=== PATIENT | male | born 1955 | race African-American/Black ===

== ENCOUNTER 2018-06-14 20:00 | Inpatient (IN) | payer OTHER ==
[~2018-06-14] VITALS: Ht 175.3 cm; Wt 72.1 kg
[2018-06-14 20:06] VITALS: BP 106/62
[2018-06-14 20:12] VITALS: BP 106/62
--- NOTE | 2018-06-14 20:14 | NUR ---
EKG PERFORMED AT BEDSIDE. PT COVERED IN GOWN DURING PROCEDURE
[2018-06-14 20:40] LABS: BASOPHILS % (AUTO) 0.2 % (0.0-2.0); EOSINOPHILS # (AUTO) 0.2 K/uL (0-0.4); EOSINOPHILS % (AUTO) 1.8 % (0.0-4.0); HEMATOCRIT 25.8 % (36-52); HEMOGLOBIN 7.9 g/dL (12.0-18.0); LYMPHOCYTES # (AUTO) 1.7 K/uL (2.0-11.5); LYMPHOCYTES % (AUTO) 12.4 % (20.5-51.1); MEAN CORPUSCULAR HEMOGLOBIN 26 pg (27-31); MEAN CORPUSCULAR HGB CONC 31 g/dL (33-37); MEAN CORPUSCULAR VOLUME 85.4 fL (80-94); MONOCYTES # (AUTO) 0.4 K/uL (0.8-1.0); MONOCYTES % (AUTO) 3.2 % (1.7-9.3); NEUTROPHILS % (AUTO) 82.4 % (42.2-75.2); PLATELET COUNT (AUTO) 306 K/uL (140-450); RED BLOOD CELL COUNT(AUTO) 3.02 MIL/uL (4.20-6.10); WHITE BLOOD COUNT (AUTO) 13.3 K/uL (4.8-10.8)
[2018-06-14] MEDS ORDERED: SLIDE SUBQ (20:48)
[2018-06-14 20:56] LABS: ALBUMIN 2.1 g/dL (3.4-5.0); CARBON DIOXIDE 27.9 mmol/L (21-32); CREATININE 1.4 mg/dL (0.7-1.3); POTASSIUM 4.9 mmol/L (3.5-5.1); TOTAL BILIRUBIN 0.1 mg/dL (0.0-1.0)
[2018-06-14] MEDS ORDERED: CRAN450C PO (21:01)
[2018-06-14] MEDS ORDERED: FAMO-90 PO (21:01)
[2018-06-14] MEDS ORDERED: LISI-420 PO (21:01)
[2018-06-14] MEDS ORDERED: LACT10PA2 PO (21:01)
[2018-06-14] MEDS ORDERED: ACET-2619 PO (21:01)
[2018-06-14] MEDS ORDERED: METO50TA21 PO (21:01)
[2018-06-14] MEDS ORDERED: HEPA500056 (21:01)
[2018-06-14] MEDS ORDERED: ASCO500T45 PO (21:01)
[2018-06-14] MEDS ORDERED: CHLO1SOL3 (21:01)
[2018-06-14] MEDS ORDERED: LEVEMIR SUBQ (21:01)
[2018-06-14] MEDS ORDERED: HYDR100T79 PO (21:01)
[2018-06-14] MEDS ORDERED: LACT10SO1 PO (21:01)
[2018-06-14] MEDS ORDERED: ROB1 PO (21:01)
[2018-06-14] MEDS ORDERED: ASPI-1205 PO (21:01)
[2018-06-14] MEDS ORDERED: DOCU-299 PO (21:01)
[2018-06-14] MEDS ORDERED: AMLO10TA PO (21:01)
[2018-06-14] MEDS ORDERED: FERR75LI22 (21:01)
[2018-06-14] MEDS ORDERED: LEVE1000 PO (21:01)
[2018-06-14] MEDS ORDERED: MODA100T13 PO (21:05)
[2018-06-14] MEDS ORDERED: PIPERACILLIN/TAZOBACTAM 3.375 GM in DEXTROSE 5% 50 ML IV ONE (21:10)
[2018-06-14] MEDS ORDERED: NACL 0.9% 1,000 ML IV ONE ×2 (21:10→23:10)
[2018-06-14] MEDS ORDERED: VANCOMYCIN 1,000 MG in DEXTROSE 5% 250 ML IV ONE (21:10)
--- NOTE | 2018-06-14 21:10 | NUR ---
IV START: L AC 18G, FLUSHED WELL W/O RESISTANCE, NO REDNESS OR SWELLING NOTED, TRANSPARENT DRESSING APPLIED. PT TOLERATED WELL.
--- NOTE | 2018-06-14 21:15 | NUR ---
PT BIBA C/O ABNORMAL LABS. [facility] [place] [facility] REQUESTING PT BE SEEN BY AT [facility] FOR HEMOGLOBIN OF 6.7. PT PRESENTS TO THE ED BAG TO [facility]. VENT, W/ RANKIN CATH, G-TUBE, AND TRACH. --PT OPENS EYES TO VOICE AND NAME. NEG HAND ONION TIER, CONTRACTURED POSITION. APHASIA. --G-TUBE PRESENT TO MEDIAL RIGHT ABD, NO REDNESS, SWELLING OR DISCHARGE NOTED TO SIGHT AT THIS TIME. --ABD ROUND AND FIRM, BOWEL SOUNDS ACTIVE X4 QUAD. --AUDIBLE RHONCHI. CHEST RISE AND FALL EQUAL AND UNLABORED BL. --SACRAL DECUB NOTED, PMH: QUADRIPLEGIC, DM, RESP FAILURE, VENT DEPENDENT, HTN, CVA RX: IN CHART VENT SETTINGS IN CHART
[2018-06-14] MEDS ORDERED: PIPERACILLIN/TAZOBACTAM 3.375 GM VIAL IV ONE (21:36)
[2018-06-14 21:49] LABS: APPEARANCE,URINE SL CLOUDY (CLEAR); BILIRUBIN,URINE NEGATIVE (NEGATIVE); BLOOD, URINE 3+ (NEGATIVE); COLOR,URINE YELLOW (YELLOW); LEUKOCYTE ESTERASE ,URINE 1+ (NEGATIVE); NITRITE, URINE NEGATIVE (NEGATIVE); PH,URINE 7.5 (5.0-9.0); UGLUCOSE 1+ (NEGATIVE)
[2018-06-14 21:55] LABS: RBC,URINE TOO NUMEROUS TO COUN /HPF (0-5); WBC,URINE 16-25 (MOD) /HPF (0-5)
[2018-06-14 21:56] LABS: YEAST,URINE Moderate /HPF (None Seen)
--- NOTE | 2018-06-14 22:17 | NUR ---
Patient noted to have existing wounds upon arrival to ER. Photos taken of wound and placed in chart; un-open sacrul wound, slight discoloration of pink and white, non blanching. Wound covered with dressing. Physician informed.
--- NOTE | 2018-06-14 22:30 | NUR ---
COMFOR MEASURES PROVIDED. PT ACTING APPROPRIAT TO BASELINE. VSS. SAFETY PRECAUTIONS IN PLACE.
[2018-06-14] MEDS ORDERED: VANCOMYCIN 1,000 MG VIAL ONE (22:45)
[2018-06-14] MEDS ORDERED: KCL 20 MEQ/WATER INJ PREMIX 200 ML IV PRN (23:00)
[2018-06-14] MEDS ORDERED: ONDANSETRON 4 MG/2 ML VIAL IVP PRN (23:00)
[2018-06-14] MEDS ORDERED: MORPHINE SULFATE 2 MG/ML SYR IVP PRN (23:00)
[2018-06-14] MEDS ORDERED: MAG SULF 2000 MG/WATER PREMIX 50 ML IV PRN (23:00)
[2018-06-14] MEDS ORDERED: LORazepam 2 MG/ML VIAL IVP PRN (23:00)
[2018-06-14] MEDS ORDERED: MORPHINE SULFATE 4 MG/ML SYR IVP PRN (23:00)
[2018-06-14 23:07] VITALS: BP 99/56
[2018-06-14] MEDS ORDERED: DEXTROSE 50% 50 ML SYR IVP PRN (23:25)
--- NOTE | 2018-06-15 00:40 | NUR ---
RECEIVED PT FROM ER VIA [employer]. PT ON TRACH TO VENT BEDBOUND, APHASIC, PT ASLEEP AT THIS TIME SEEMS LETHARGIC (UNABLE TO ASSESS MENTAL STATUS AT THIS TIME). PT HAS SECRETIONS FROM MOUTH, SUNCTIONED BY RT. W/ IV ON THE LEFT AC G 18, PATENT AND INTACT .PT HAS A LOT OF SECRETIONS IN THE LUNGS, SUNCTIONED BY RT AT BEDSIDE. PLACED IN LOW BED. FALL RISK, AND CALL LIGHT W/IN REACH
--- NOTE | 2018-06-15 01:25 | NUR ---
PT TURNED AND CLEANED, W/ 1 LOOSE BM NOTED, YELLOW IN COLOR.
[2018-06-15] MEDS: DEXT 5% / NACL 0.45% 1,000 ML IV SCH ×4 (02:12→23:10)
--- NOTE | 2018-06-15 02:12 | NUR ---
PT STARTED W/ IVF FLUID ORDERED, GT IN PLACE ON LEFT SIDE OF ABDOMEN, INTACT. NO TUBE FEEDING YET ORDERED.
[2018-06-15 04:00] VITALS: BP 134/80
--- NOTE | 2018-06-15 05:00 | NUR ---
PT TURNED AND CLEANED, NO BM. DRAINED F/C W/ YELLOW STRAW COLORED URINE = 600 ML
--- NOTE | 2018-06-15 06:19 | NUR ---
PATIENT HAS BEEN SCREENED AND CATEGORIZED HIGH NUTRITION RISK. PATIENT WILL BE SEEN WITHIN 1-2 DAYS OF ADMISSION. 06/16/18-06/17/18 MACIE SAMANO MS, RDN
--- NOTE | 2018-06-15 06:42 | NUR ---
RECEIVED PT ON CARESCAPE ON DOCUMENTED SETTINGS, ALARMS ARE ON AND AUDIBLE, PTS TRAC IS SECURE PORTEX 8 , PT IN HF QUIET, BS CLEAR CONT. POX IN PLACE, BMV HOB, VENT PLUGGED INTO RED OUTLET
[2018-06-15] MEDS: BLOOD GLUCOSE MONITORING 1 DEV DEV FS SCH ×4 (06:43→19:59)
[2018-06-15] MEDS: INSULIN LISPRO SLIDING SCALE 100 UNITS/ML VIAL SUBQ PRN ×4 (06:44→20:03)
--- NOTE | 2018-06-15 07:20 | NUR ---
ENDORSED TO AM SHIFT FOR CONTINUITY OF CARE. PT TRACH TO VENT, AWAKE AT THIS TIME, NO RESPIRATORY DISTRESS NOTED.
--- NOTE | 2018-06-15 07:21 | NUR ---
REPORT RECEIVED FROM TRAFFIC CHIEF NURSE AT BEDSIDE FOR CONTINUITY OF CARE. PATIENT AWAKE WITH EYES OPEN, TRACH TO VENT, RESPIRATIONS EVEN AND UNLABORED ON VENTILATOR. FLACC-0, IV SITE PATENT, INTACT, AND ASYMPTOMATIC. UPDATED BOARD. PATIENT HAS RANKIN CATHETER DRAINING TO GRAVITY, DRAINING YELLOW URINE. PATIENT HAS GTUBE, GTUBE AUSCULTATED FOR PLACEMENT, 0ML OF RESIDUAL NOTED. GTUBE CURRENTLY CLAMPED. AWAITING ORDERS FOR FEEDING. SAFETY AND SEIZURE PRECAUTIONS IN PLACE, BED IN LOWEST SETTING WITH ALARM ON, CALL LIGHT WITHIN REACH, WILL CONTINUE TO MONITOR PATIENT.
[2018-06-15 08:00] VITALS: BP 119/69
[2018-06-15 08:39] LABS: BASOPHILS # (AUTO) 0.1 K/uL (0.00-0.22); BASOPHILS % (AUTO) 0.5 % (0.0-2.0); EOSINOPHILS # (AUTO) 0.2 K/uL (0-0.4); EOSINOPHILS % (AUTO) 1.9 % (0.0-4.0); HEMATOCRIT 24.3 % (36-52); HEMOGLOBIN 7.7 g/dL (12.0-18.0); LYMPHOCYTES # (AUTO) 1.8 K/uL (2.0-11.5); LYMPHOCYTES % (AUTO) 18.5 % (20.5-51.1); MEAN CORPUSCULAR HEMOGLOBIN 27 pg (27-31); MEAN CORPUSCULAR HGB CONC 32 g/dL (33-37); MEAN CORPUSCULAR VOLUME 85.1 fL (80-94); MONOCYTES # (AUTO) 0.4 K/uL (0.8-1.0); MONOCYTES % (AUTO) 4.4 % (1.7-9.3); NEUTROPHILS # (AUTO) 7.4 K/uL (1.8-7.7); NEUTROPHILS % (AUTO) 74.7 % (42.2-75.2); PLATELET COUNT (AUTO) 259 K/uL (140-450); RED BLOOD CELL COUNT(AUTO) 2.85 MIL/uL (4.20-6.10); RED CELL DISTRIBUTION WIDTH 17.2 % (11.6-13.7)
[2018-06-15 08:52] LABS: ALBUMIN 1.9 g/dL (3.4-5.0); ANION GAP 13.2 (8-16); CARBON DIOXIDE 26.1 mmol/L (21-32); CREATININE 1.2 mg/dL (0.7-1.3); MAGNESIUM 2.8 mg/dL (1.8-2.4); POTASSIUM 4.3 mmol/L (3.5-5.1); TOTAL BILIRUBIN 0.1 mg/dL (0.0-1.0)
--- NOTE | 2018-06-15 09:15 | NUR ---
PATIENT'S CANDI CALLED, UPDATED HER ON PATIENT'S STATUS. SHE VERBALIZED UNDERSTANDING AND STATED SHE WILL BE IN LATER TO SEE HIM. RN VERBALIZED UNDERSTANDING. PAGED DR. TALBOT ABOUT PATIENT'S LAB RESULTS, WILL WAIT FOR HIS CALL BACK. PATIENT RESTING IN BED, SAFETY PRECAUTIONS IN PLACE, CALL LIGHT WITHIN REACH, WILL CONTINUE TO MONITOR PATIENT.
--- NOTE | 2018-06-15 09:35 | NUR ---
CALLED [facility] TO INQUIRE ABOUT PATIENT'S TUBE FEEDING AND PNA AND FLU VACCINE STATUS. SPOKE TO KRISTOPHER, NURSING ROUGE MIXER. PATIENT'S REGULAR TUBE FEEDING IS GLUCERNA 1.5 AT 70 CC/HR. PNA AND FLU VACCINE GIVEN IN 05/02/18. RN VERBALIZED UNDERSTANDING.
--- NOTE | 2018-06-15 09:39 | NUR ---
CALLED DR. TALBOT TO UPDATED HIM WITH PATIENT'S SODIUM LEVEL OF 156. HE STATED TO CONTINUE SAME FLUID AND RATE. RN VERBALIZED UNDERSTANDING. WILL CONTINUE TO MONITOR PATIENT.
[2018-06-15] MEDS: levETIRAcetam 100 MG/ML ORASYR GT SCH ×2 (11:27→20:31)
--- NOTE | 2018-06-15 11:30 | NUR ---
PATIENT MOVED TO WOUND BED. PATIENT'S DRESSING CHANGED, MINIMAL DRAINAGE NOTED. PATIENT REPOSITIONED FOR COMFORT AND TO OFFLOAD PRESSURE AREAS. PATIENT TOLERATED PROCEDURE. PATIENT NOW RESTING IN BED. PATIENT SUCTIONED WITH THICK SECRETIONS. SAFETY AND SEIZURE PRECAUTIONS IN PLACE, CALL LIGHT WITHIN REACH, WILL CONTINUE TO MONITOR PATIENT.
[2018-06-15 12:00] VITALS: BP 117/65
[2018-06-15] MEDS: ALBUTEROL 0.083% 2.5 MG/3 ML NEBU INH PRN (13:31)
--- NOTE | 2018-06-15 14:10 | NUR ---
PAGED DR. POTTER ABOUT PATIENT'S TUBE FEEDING AND MEDICATIONS. WILL WAIT FOR HIS CALL BACK.
[2018-06-15] MEDS ORDERED: ACETAMINOPHEN 325 MG TAB GT PRN (15:30)
--- NOTE | 2018-06-15 15:50 | NUR ---
CALLED DR POTTER ABOUT PATIENT'S TUBE FEEDING AND MEDICATIONS. NEW ORDERS IN. NOTED AND WILL BE FOLLOWED.
[2018-06-15 16:00] VITALS: BP 128/82
[2018-06-15] MEDS: LACTULOSE 20 GM/30 ML UDC GT SCH ×2 (16:26→20:30)
[2018-06-15] MEDS: GLYCOPYRROLATE 1 MG TAB GT SCH (16:26)
--- NOTE | 2018-06-15 17:09 | NUR ---
BLOOD SUGAR 277, COVERAGE GIVEN. PATIENT TOLERATED IT. SAFETY AND SEIZURE PRECAUTIONS IN PLACE, CALL LIGHT WITHIN REACH, WILL CONTINUE TO MONITOR PATIENT.
--- NOTE | 2018-06-15 17:48 | NUR ---
DR. TALBOT HERE TO SEE THE PATIENT. UPDATED HIM ABOUT PATIENT'S STATUS. NO NEW ORDERS AT TIME. GTUBE AUSCULTATED FOR PLACEMENT, 0 ML OF RESIDUAL NOTED, TUBE FEEDING STARTED AT 1730 WITH RATE ORDERED. PATIENT TOLERATING IT. PATIENT SUCTIONED WITH THICK SECRETIONS. SAFETY AND SEIZURE PRECAUTIONS IN PLACE, CALL LIGHT WITHIN REACH, WILL CONTINUE TO MONITOR PATIENT.
--- NOTE | 2018-06-15 19:05 | NUR ---
REPORT GIVEN TO RADIOACTIVITY TECHNICIAN NURSE AT BEDSIDE FOR CONTINUITY OF CARE. PATIENT IN STABLE CONDITION.
--- NOTE | 2018-06-15 19:06 | NUR ---
REPORT RECEIVED FROM AM SHIFT NURSE AT BEDSIDE PATIENT AWAKE WITH EYES OPEN, TRACH TO VENT, RESPIRATIONS EVEN AND UNLABORED ON VENTILATOR. 32 FIO2; VF 500; RATE 16; FLOW 40; PEEP 5. FLACC-0, IV SITE PATENT, INTACT, AND ASYMPTOMATIC. W/ GTUBE FEEDING GLUCERNA 1.2 ML, GTUBE AUSCULTATED FOR PLACEMENT, 10 ML OF RESIDUAL NOTED. PATIENT HAS RANKIN CATHETER DRAINING TO GRAVITY, DRAINING YELLOW URINE. SAFETY AND SEIZURE PRECAUTIONS IN PLACE, BED IN LOWEST SETTING WITH ALARM ON, CALL LIGHT WITHIN REACH, WILL CONTINUE TO MONITOR PATIENT.
--- NOTE | 2018-06-15 19:20 | NUR ---
TUBE FEEDING REMAINED TO BE AT 40 ML/HR ENDORSED BY PREVIOUS SHIFT,FIORELLARN ACCDG TO DR. TALBOT UNTIL HE COMES BACK TMRW.
[2018-06-15 20:00] VITALS: BP 135/84
--- NOTE | 2018-06-15 20:00 | NUR ---
PT'S TURNED Q 2 TO HIS SIDE.
[2018-06-15] MEDS: INSULIN LANTUS 100 UNITS/ML 10 ML VIAL SUBQ SCH (20:09)
--- NOTE | 2018-06-15 20:22 | NUR ---
CALLED PHARMACY, [facility], [facility], 10.0 PT LEVEL LOW. PHARMACY SAID TO GO AHEAD W/ THE ADMINISTRATION OF HEPARIN SQ
[2018-06-15] MEDS: METOPROLOL 25 MG TAB GT SCH (20:31)
[2018-06-15] MEDS: FAMOTIDINE 20 MG TAB GT SCH (20:32)
--- NOTE | 2018-06-15 21:00 | NUR ---
BLOOD SUGAR 270, HUMALOG COVERAGE GIVEN.W/ LANTUS COVERAGE ALSO. PATIENT TOLERATED IT
[2018-06-16] VITALS: BP 121/67
--- NOTE | 2018-06-16 00:32 | NUR ---
PT HAD A LOOSE BM, YELLOW IN COLOR, MAXIMUM IN AMOUNT. WAS GIVEN CEPHULAC EARLIER TOTAL OF 45 ML.
[2018-06-16 04:00] VITALS: BP 141/80
[2018-06-16] MEDS: INSULIN LISPRO SLIDING SCALE 100 UNITS/ML VIAL SUBQ PRN ×5 (04:54→20:15)
[2018-06-16] MEDS: BLOOD GLUCOSE MONITORING 1 DEV DEV FS SCH ×5 (06:01→20:16)
--- NOTE | 2018-06-16 06:31 | NUR ---
rec'd pt on carescape vent settings ac16 vt 500 peep 5 fio2 32% alarms on and audible and ambu bat at side of vent and vent is plugged into red outlet, no hhn needed at this time, b\s are clear bilaterally sxn pt small amt of thin yellow secretions pt is trach with portex 8 and skin integrity is intact, pt is sleeping with no signs of distress noted at this time
[2018-06-16 07:06] LABS: ALBUMIN 1.9 g/dL (3.4-5.0); CARBON DIOXIDE 21.9 mmol/L (21-32); MAGNESIUM 2.4 mg/dL (1.8-2.4); POTASSIUM 3.9 mmol/L (3.5-5.1)
--- NOTE | 2018-06-16 07:15 | NUR ---
ENDORSED TO NEXT SHIFT FOR CONTINUITY OF CARE. PT IN STABLE CONDITION AT THIS TIME.
--- NOTE | 2018-06-16 07:16 | NUR ---
Received bedside report from pm nurse Lilo. Pt asleep, FLACC 0, respirations even & nonlabored. Trach in place with A/C vent. LAC IV intact with ongoing D5 1/2 NS @ 100ml/hr. Platt cath intact & draining clear light kayden urine. GT in place with ongoing Glucerna 1.2 @ 40ml/hr; HOB up at 30deg. Call light within reach.
[2018-06-16 08:00] VITALS: BP 141/70
[2018-06-16] MEDS: LACTULOSE 20 GM/30 ML UDC GT SCH ×4 (09:00→20:02)
--- NOTE | 2018-06-16 09:00 | NUR ---
Lactulose held at this time d/t previous shift report of multiple loose stools 2/2 lactulose. Pt asymptomatic at this time, abd soft, bowel sound active on all quadrants.
[2018-06-16] MEDS: ASCORBIC ACID 500 MG TAB GT SCH (09:42)
[2018-06-16] MEDS: METOPROLOL 25 MG TAB GT SCH ×2 (09:42→20:02)
[2018-06-16] MEDS: FAMOTIDINE 20 MG TAB GT SCH ×2 (09:42→20:02)
[2018-06-16] MEDS: ASPIRIN 325 MG TAB GT SCH (09:42)
[2018-06-16] MEDS: FERROUS SULFATE 300 MG/5 ML UDC GT SCH (09:49)
[2018-06-16] MEDS: levETIRAcetam 100 MG/ML ORASYR GT SCH ×2 (09:49→20:03)
[2018-06-16] MEDS: DOCUSATE 100 MG/10 ML UDC PO SCH (09:49)
[2018-06-16] MEDS: GLYCOPYRROLATE 1 MG TAB GT SCH ×3 (09:50→17:03)
[2018-06-16] MEDS: LISINOPRIL 20 MG TAB GT SCH (09:50)
[2018-06-16 10:07] LABS: HEMATOCRIT 25.9 % (36-52); MEAN CORPUSCULAR VOLUME 86.4 fL (80-94); WHITE BLOOD COUNT (AUTO) 15.3 K/uL (4.8-10.8)
[2018-06-16 10:08] LABS: MEAN CORPUSCULAR HEMOGLOBIN 27 pg (27-31); MEAN CORPUSCULAR HGB CONC 31 g/dL (33-37); PLATELET COUNT (AUTO) 244 K/uL (140-450); RED CELL DISTRIBUTION WIDTH 16.8 % (11.6-13.7)
[2018-06-16 10:09] LABS: BASOPHILS % (MANUAL) 0 % (0-2); EOSINOPHILS % (MANUAL) 1 % (0-4); LYMPHOCYTES % (MANUAL) 23 % (20-46); MONOCYTES % (MANUAL) 5 % (5-12)
--- NOTE | 2018-06-16 11:30 | NUR ---
pt sleeping with no signs of distress noted at this time no hhn given Addendum: 06/16/18 at 1157 by Nel Liu RT entered wrong
--- NOTE | 2018-06-16 11:46 | NUR ---
WOUND CARE EVALUATION NOTE: REASON FOR EVALUATION: SACRALCOCCYX WOUND SKIN ASSESSMENT DONE WITH PRIMARY RN ON THIS 62 Y/O MALE PT ADMITTED FROM [facility] [place] TO [facility] WITH INITIAL DX OF ANEMIA AND DEHYDRATION. PAST MEDICAL HX INCLUDES HTN, DM AND CVA WITH QUADRIPLEGIA. ALL ABOVE INFORMATION OBTAINED FROM ADMISSION H&P. PT. IS TRACH TO VENT AND PEG TUBE IN PLACE. SKIN IS WARM AND DRY, BLE NO HAIR GROWTH, NO EDEMA. BILATERAL DORSAL PEDAL PULSES PRESENT AND NORMAL. PLAN OF CARE DISCUSSED WITH PRIMARY RN AND PT. INTEGUMENTARY: -TRACH SITE ARELY-STOMA SKIN INTACT -GT SITE ARELY-STOMA SKIN INTACT -PRESSURE INJURY STAGE 2 TO SACROCOCCYX 2.5X1X0.2CM BUTTERFLY SHAPE, WOUND BED IS PALE PINK, MOIST, NO ODOR, PASTOR-WOUND SKIN INTACT, SURROUNDING REDNESS INDICATED FURTHER DAMAGE. -XEROSIS BILATERAL FEET WITH FUNGAL NAILS X 10 TOES RECOMMENDATIONS: -KEEP SKIN DRY AND CLEAN AT ALL TIMES, PLEASE CHECK Q2H AND PRN FOR DRYNESS -APPLY HYDRAGUARD TO BLE/ FEET BIDWC AND LEAVE IT OPEN TO AIR -APPLY Z-GUARD AND FORM DRESSING TO SACROCOCCY QD AND PRN IF SOILING -APPLY HEEL PROTECTORS TO RIGHT /LEFT HEELS AT ALL TIMES -OFFLOAD BILATERAL HEELS BY PLACING PILLOWS UNDER CALVES UNLESS OTHERWISE CONTRAINDICATED -PRESSURE REDISTRIBUTION SURFACE THERAPY -TURN AND REPOSITION Q2H, OFFLOAD SACRALCOCCYX BY TURNING RIGHT AND LEFT -CONTINUE TO FOLLOW RD RECOMMENDATIONS ALL ABOVE RECOMMENDATIONS DISCUSSED WITH PRIMARY RN WILL FOLLOW UP PT Q7-10 DAYS. PLEASE CONTACT WOUND CARE NURSE FOR ANY QUESTION AND CHANGE OF WOUND CONDITION.
[2018-06-16 12:00] VITALS: BP 107/68
[2018-06-16] MEDS: Z-GUARD PASTE TP SCH (12:50)
[2018-06-16] MEDS: HYDRAGUARD CREAM TP SCH (12:51)
--- NOTE | 2018-06-16 14:45 | NUR ---
Received dietary recommendations to change tube feed to Vital @ 50ml/hr, & give Prosource bid. Will notify Dr Dunn for order.
--- NOTE | 2018-06-16 14:49 | NUR ---
06/16/18 RD INITIAL ASSESSMENT COMPLETED PLEASE REFER TO NUTRITION ASSESSMENT UNDER CARE ACTIVITY FOR ESTIMATED NUTRITIONAL NEEDS. 1. RECOMMEND VITAL AT 50 ML/HR -THIS WILL PROVIDE A VOLUME OF 1200 ML, 1440 KCAL ENERGY, AND 90 GM PROTEIN. IT MEETS 94% OF PT�S ENERGY NEED AND 81% OF PT�S PROTEIN NEEDS. 2. RECOMMEND PROSOURCE BID 3. RECOMMEND FWF [address] TO FOLLOW-UP 2-3 DAYS, HIGH RISK HEBER VIZCARRA RD
[2018-06-16] MEDS: DEXT 5% / NACL 0.45% 1,000 ML IV SCH (14:58)
--- NOTE | 2018-06-16 15:15 | NUR ---
Dr. Mona buchanan for preliminary blood cx result with gram positive cocci. Awaiting physician call back.
--- NOTE | 2018-06-16 15:30 | NUR ---
Dr. Dunn paged again re: blood cx result.
--- NOTE | 2018-06-16 15:45 | NUR ---
Dr. Dunn paged again re: blood cx result.
[2018-06-16 16:00] VITALS: BP 115/69
[2018-06-16] MEDS ORDERED: VANCOMYCIN PER PHARMACY MC PRN (16:10)
--- NOTE | 2018-06-16 16:10 | NUR ---
Received call back from Dr Dunn. Physician notified of blood cx result, & also notified of dietary recommendations. New orders received, noted & carried out.
[2018-06-16] MEDS: NACL 0.45% 1,000 ML IV SCH (16:23)
[2018-06-16] MEDS: VANCOMYCIN 750 MG in NACL 0.9% 250 ML IV SCH (17:43)
--- NOTE | 2018-06-16 19:16 | NUR ---
Bedside report given to pm nurse Abelardo.
--- NOTE | 2018-06-16 19:17 | NUR ---
RECEIVED ON BED WITH EYES CLOSED, OPEN EYES TO TOUCH, APHASIC, VITAL SIGNS STABLE, ON TRACH TO VENT WITH FF SETTINGS:FI02-32%, TV-500, PEEP-5, RATE-16, FLOW RATE-40L/M, SAT-100%, IVF INFUSING WELL, G-TUBE FEEDING INFUSING WELL, HOB ELEVATED AT ALL TIMES, RANKIN CATH TO GRAVITY WITH STRAW COLORED URINE, PT BEDBOUND WITH HX OF QUAD, WILL REPOSITION Q2H AND OFFLOAD PRESSURE AREAS, SERGIO HEEL PROTECTOR IN PLACE, SAFETY MEASURES IN PLACE.
[2018-06-16 20:00] VITALS: BP 115/72
[2018-06-16] MEDS: INSULIN LANTUS 100 UNITS/ML 10 ML VIAL SUBQ SCH (20:13)
--- NOTE | 2018-06-16 20:30 | NUR ---
BLOOD SUGAR CHECKED WITH 168 RESULT. COVERAGE GIVEN, 10ML G-TUBE RESIDUAL NOTED, DUE MEDS GIVEN THROUGH G-TUBE, NEW G-TUBE FEEDING WITH VITAL AF STARTED AT 50ML/H WITH H2O FLUSH OF 250ML Q6H ORDERED, ORAL CARE DONE USING VAP KIT, ALL NEEDS ANTICIPATED.
--- NOTE | 2018-06-16 22:20 | NUR ---
VENT ALARM WITH PEAK HIGH ALERT, PT SUCTIONED TRACHEALLY AND ORALLY WITH MODERATE AMOUNT OF CREAMY SECRETION NOTED, SAT-99%, ALARM RESOLVED, MONITORED CLOSELY.
[2018-06-17] VITALS: BP 97/59
--- NOTE | 2018-06-17 | NUR ---
PT SLEEPING, EASILY AROUSABLE, VITAL SIGNS STABLE, FLACC-0, SUCTION SECRETION PRN, 30ML G-TUBE RESIDUAL NOTED, MAINTAIN HOB AT 30 DEGREE, IVF INFUSING WELL, CONTINUE TO REPOSITION Q2H AND OFFLOAD PRESSURE AREAS, MONITORED CLOSELY.
[2018-06-17] MEDS: HYDRAGUARD CREAM TP SCH ×2 (00:27→13:00)
[2018-06-17] MEDS: NACL 0.45% 1,000 ML IV SCH ×3 (02:10→12:10)
[2018-06-17 04:00] VITALS: BP 127/86
--- NOTE | 2018-06-17 04:00 | NUR ---
PT SLEEPING, VITAL SIGNS STABLE, FLACC-0, NO SIGNS OF DISTRESS, MONITORED CLOSELY.
[2018-06-17] MEDS: VANCOMYCIN 750 MG in NACL 0.9% 250 ML IV SCH ×2 (05:33→17:54)
--- NOTE | 2018-06-17 05:35 | NUR ---
PT HAD LARGE LOOSE BROWN STOOL X2 THE WHOLE SHIFT, DRESSING TO SACRAL WOUND CHANGED, ORAL CARE DONE, 10ML G-TUBE RESIDUAL NOTED, BLOOD SUGAR CHECKED WITH 145 RESULT, MONITORED CLOSELY.
[2018-06-17] MEDS: BLOOD GLUCOSE MONITORING 1 DEV DEV FS SCH ×4 (06:34→20:47)
--- NOTE | 2018-06-17 06:43 | NUR ---
RECEIVED PT ON CARESCAPE ON DOCUMENTED SETTINGS, ALARMS ARE ON AND AUDIBLE, PT TRACH PORTEX 8 IS SECURE, PT IN HF ASLEEP HHN GIVEN WITH 3 MG DUONEB BNV HOB, CONT. POX IN PLACE, VENT PLUGGED INTO RED OUTLET
[2018-06-17 06:51] LABS: BASOPHILS % (AUTO) 0.4 % (0.0-2.0); EOSINOPHILS # (AUTO) 0.2 K/uL (0-0.4); EOSINOPHILS % (AUTO) 2.3 % (0.0-4.0); HEMATOCRIT 22.5 % (36-52); HEMOGLOBIN 7.1 g/dL (12.0-18.0); LYMPHOCYTES # (AUTO) 1.4 K/uL (2.0-11.5); LYMPHOCYTES % (AUTO) 16.6 % (20.5-51.1); MEAN CORPUSCULAR HEMOGLOBIN 27 pg (27-31); MEAN CORPUSCULAR HGB CONC 32 g/dL (33-37); MEAN CORPUSCULAR VOLUME 84.4 fL (80-94); MONOCYTES # (AUTO) 0.4 K/uL (0.8-1.0); NEUTROPHILS # (AUTO) 6.4 K/uL (1.8-7.7); NEUTROPHILS % (AUTO) 75.7 % (42.2-75.2); PLATELET COUNT (AUTO) 230 K/uL (140-450); RED BLOOD CELL COUNT(AUTO) 2.66 MIL/uL (4.20-6.10); RED CELL DISTRIBUTION WIDTH 16.6 % (11.6-13.7); WHITE BLOOD COUNT (AUTO) 8.4 K/uL (4.8-10.8)
--- NOTE | 2018-06-17 07:09 | NUR ---
PT SLEEPING, NO SIGNS OF DISTRESS, BEDSIDE REPORT GIVEN TO RN ISAURA FOR CONTINUITY OF CARE.
--- NOTE | 2018-06-17 07:10 | NUR ---
Bedside report received from pm nurse Abelardo. Pt asleep, respirations even & nonlabored. Trach to vent in place. GT intact with ongoing feeding of Vital AF 1.2 @ 50 ml/hr. Left AC IV intact with ongoing 1/2 NS @ 100ml/hr. Platt cath in place & draining clear yellow urine. HOB up at 30degrees. Call light within reach.
[2018-06-17 07:18] LABS: ANION GAP 14.1 (8-16); CARBON DIOXIDE 23.4 mmol/L (21-32); CREATININE 0.9 mg/dL (0.7-1.3); POTASSIUM 3.5 mmol/L (3.5-5.1)
[2018-06-17 07:36] LABS: MAGNESIUM 2.2 mg/dL (1.8-2.4); PHOSPHORUS 3.1 mg/dL (2.5-4.9)
[2018-06-17 08:00] VITALS: BP 149/80
[2018-06-17] MEDS: DOCUSATE 100 MG/10 ML UDC PO SCH (08:59)
[2018-06-17] MEDS: FERROUS SULFATE 300 MG/5 ML UDC GT SCH (08:59)
[2018-06-17] MEDS: METOPROLOL 25 MG TAB GT SCH ×2 (09:00→20:48)
[2018-06-17] MEDS: GLYCOPYRROLATE 1 MG TAB GT SCH ×3 (09:00→17:13)
[2018-06-17] MEDS: FAMOTIDINE 20 MG TAB GT SCH ×2 (09:00→20:48)
[2018-06-17] MEDS: LACTULOSE 20 GM/30 ML UDC GT SCH ×4 (09:00→20:48)
[2018-06-17] MEDS: ASCORBIC ACID 500 MG TAB GT SCH (09:00)
[2018-06-17] MEDS: levETIRAcetam 100 MG/ML ORASYR GT SCH ×2 (09:00→20:48)
[2018-06-17] MEDS: LISINOPRIL 20 MG TAB GT SCH (09:02)
[2018-06-17] MEDS: ASPIRIN 325 MG TAB GT SCH (09:04)
[2018-06-17 12:00] VITALS: BP 123/87
[2018-06-17] MEDS: Z-GUARD PASTE TP SCH (13:00)
--- NOTE | 2018-06-17 13:00 | NUR ---
Lactulose held d/t episodes of loose stools.
--- NOTE | 2018-06-17 14:04 | NUR ---
CM NOTE FAXED CLINICAL PACKET TO [facility]. NO DISCHARGE ORDER AT THIS TIME. PER [facility]ER, FOR [facility] TO GO BACK TO SNF AUTH# [id number].
[2018-06-17] MEDS: DEXTROSE 5% 1,000 ML IV SCH (14:55)
[2018-06-17 16:00] VITALS: BP 126/72
--- NOTE | 2018-06-17 17:00 | NUR ---
Lactulose held d/t loose stools.
--- NOTE | 2018-06-17 17:15 | NUR ---
Contact isolation precautions initiated d/t positive MDRO to urine & sputum.
[2018-06-17] MEDS: INSULIN LISPRO SLIDING SCALE 100 UNITS/ML VIAL SUBQ PRN (17:16)
--- NOTE | 2018-06-17 19:10 | NUR ---
Bedside report given to pm nurse Flower. Pt asleep, trach to vent in place, respirations even & nonlabored.
--- NOTE | 2018-06-17 19:30 | NUR ---
ASSUMED CARE OF PATIENT, AWAKE, NONVERBAL. RT AT BEDSIDE. HOB ELEVATED AT ALL TIMES. GT FEEDING WELL TOLERATED WITH MINIMAL RESIDUAL. CARE BOARD UPDATED.
--- NOTE | 2018-06-17 19:38 | NUR ---
RECEIVED TRACH PT ON VENT WITH SETTINGS AC 16, VT 500, PEEP 5 AND FIO2 32%. PT HAS A PORTEX 8 TRACH THAT IS SECURE WITH A PATENT AIRWAY. PT SUCTIONED OBTAINED MODERATE AMOUNT OF THICK WHITE SECRETIONS. PT IS APHASIC BUT NOT IN ANY DISTRESS.VENT ALARMS ON AND FUNCTIONING. WILL CONTINUE TO MONITOR.
--- NOTE | 2018-06-17 20:00 | NUR ---
REPOSITIONED TO SEMIFOWLERS. HOB ELEVATED. VITAL SIGNS STABLE. AFEBRILE NOTED. CALL LIGHT WITHIN REACH.
[2018-06-17 20:14] VITALS: BP 138/74
[2018-06-17] MEDS: INSULIN LANTUS 100 UNITS/ML 10 ML VIAL SUBQ SCH (20:50)
--- NOTE | 2018-06-17 21:00 | NUR ---
DUE MEDS GIVEN, SUCTION SECRETIONS. GT FEEDING TUBING AND SOLUTION CHANGE. HOB ELEVATED AT ALL TIMES.
--- NOTE | 2018-06-17 22:24 | NUR ---
PERICARE DONE BY CORRECTIVE THERAPIST. REPOSITIONED TO LEFT SIDE LYING BY CORRECTIVE THERAPIST. CALL LIGHT WITHIN REACH.
--- NOTE | 2018-06-17 23:38 | NUR ---
FIO2 TITRATED TO 28% SPO2 REMAINS AT ADEQUATE LEVEL. PT SUCTIONED OBTAINED SMALL AMOUNT OF THICK WHITE SECRETIONS, AIRWAY IS PATENT AND TRACH IS SECURE. WILL CONTINUE TO MONITOR.
[2018-06-18] VITALS (7 sets, daily range): BP systolic 110–152; BP diastolic 58–87
[2018-06-18] MEDS: HYDRAGUARD CREAM TP SCH ×2 (00:37→12:37)
--- NOTE | 2018-06-18 00:39 | NUR ---
AFEBRILE. VITAL SIGNS STABLE. HOB ELEVATED AT ALL TIMES. REPOSITIONED TO LEFT SIDE LYING. CALL LIGHT WITHIN REACH.
--- NOTE | 2018-06-18 04:31 | NUR ---
SUCTION SECRETIONS. REPOSITIONED AND AM CARE DONE BY ICE SKATING TEACHER. VITAL SIGNS STABLE. AFEBRILE. CALL LIGHT WITHIN REACH. HOB ELEVATED AT ALL TIME.
[2018-06-18] MEDS: BLOOD GLUCOSE MONITORING 1 DEV DEV FS SCH ×4 (05:59→20:48)
--- NOTE | 2018-06-18 06:04 | NUR ---
PT REMAINS ON DOCUMENTED VENT SETTINGS. VENT ALARMS ON AND FUNCTIONING. TRACH REMAINS SECURE WITH A PATENT AIRWAY. PT IS APHASIC BUT NOT IN ANY DISTRESS AT THIS TIME.
[2018-06-18] MEDS: INSULIN LISPRO SLIDING SCALE 100 UNITS/ML VIAL SUBQ PRN ×4 (06:09→20:47)
[2018-06-18] MEDS: VANCOMYCIN 750 MG in NACL 0.9% 250 ML IV SCH (06:30)
--- NOTE | 2018-06-18 07:35 | NUR ---
ENDORSED CARE AT BEDSIDE WITH KIANA RN, PATIENT IN STABLE CONDITION.
--- NOTE | 2018-06-18 07:36 | NUR ---
RECEIVED BEDSIDE REPORT FROM WEB CONTENT DEVELOPER NURSE. PATIENT IS APHASIC. TRACH TO VENT. VENT SETTINGS AT FI02 28 VT 500 RATE 16 FLOW 40 PEEP5 PMAX 45. PATIENT IS BEDBOUND. FALL RISK PROTOCOL IN PLACE. SEIZURES PRECAUTIONS. ASPIRATION PRECAUTIONS. SKIN HAS SACRAL COCCYX ULCER, DRESSING IS INTACT. PATIENT HAS RANKIN, RANKIN IS PATENT W YELLOW URINE. IV ON APOORVA 20G INFUSING VANCO AT 165. CLEAN, DRY AND INTACT. GTUBE IN PLACE INFUSING VITAL AF AT 50 W H20 FLUSH 250 Q6HRS. CONTACT PRECAUTIONS FOR MDRO SPUTUM AND ESBL URINE. BED IN LOW POSITION. WOUND BED. CALL LIGHT WITHIN REACH. WILL CONTINUE TO MONITOR
[2018-06-18 08:16] LABS: BASOPHILS % (AUTO) 0.6 % (0.0-2.0); EOSINOPHILS # (AUTO) 0.1 K/uL (0-0.4); EOSINOPHILS % (AUTO) 2.1 % (0.0-4.0); LYMPHOCYTES # (AUTO) 1.6 K/uL (2.0-11.5); LYMPHOCYTES % (AUTO) 26.4 % (20.5-51.1); MEAN CORPUSCULAR HEMOGLOBIN 27 pg (27-31); MEAN CORPUSCULAR HGB CONC 32 g/dL (33-37); MEAN CORPUSCULAR VOLUME 83.7 fL (80-94); MONOCYTES # (AUTO) 0.4 K/uL (0.8-1.0); MONOCYTES % (AUTO) 7.2 % (1.7-9.3); NEUTROPHILS # (AUTO) 3.8 K/uL (1.8-7.7); NEUTROPHILS % (AUTO) 63.7 % (42.2-75.2); PLATELET COUNT (AUTO) 194 K/uL (140-450); RED BLOOD CELL COUNT(AUTO) 2.45 MIL/uL (4.20-6.10); RED CELL DISTRIBUTION WIDTH 16.5 % (11.6-13.7); WHITE BLOOD COUNT (AUTO) 5.9 K/uL (4.8-10.8)
[2018-06-18 08:21] LABS: ALBUMIN 1.6 g/dL (3.4-5.0); ANION GAP 10.7 (8-16); CARBON DIOXIDE 24.6 mmol/L (21-32); CREATININE 0.7 mg/dL (0.7-1.3); POTASSIUM 3.3 mmol/L (3.5-5.1)
[2018-06-18] MEDS: ALBUTEROL 0.083% 2.5 MG/3 ML NEBU INH PRN ×3 (08:23→20:17)
[2018-06-18 08:39] LABS: HEMATOCRIT 20.5 % (36-52); HEMOGLOBIN 6.6 g/dL (12.0-18.0)
[2018-06-18 08:53] LABS: TOTAL BILIRUBIN 0.1 mg/dL (0.0-1.0)
--- NOTE | 2018-06-18 09:55 | NUR ---
RT W PATIENT. WILL CONTINUE TO MONITOR
--- NOTE | 2018-06-18 09:59 | NUR ---
STABLE GOOD CHEST RISE DEEP TRACHEAL SUCTION FOR LARGE SEMI THICK YELLOW SECRETIONS AIRWAY PATENT
[2018-06-18] MEDS: levETIRAcetam 100 MG/ML ORASYR GT SCH ×2 (10:16→20:57)
[2018-06-18] MEDS: LACTULOSE 20 GM/30 ML UDC GT SCH ×4 (10:16→20:53)
[2018-06-18] MEDS: DOCUSATE 100 MG/10 ML UDC PO SCH (10:18)
[2018-06-18] MEDS: FERROUS SULFATE 300 MG/5 ML UDC GT SCH (10:20)
[2018-06-18] MEDS: ASCORBIC ACID 500 MG TAB GT SCH (10:21)
[2018-06-18] MEDS: ASPIRIN 325 MG TAB GT SCH (10:21)
[2018-06-18] MEDS: FAMOTIDINE 20 MG TAB GT SCH ×2 (10:22→20:58)
[2018-06-18] MEDS: LISINOPRIL 20 MG TAB GT SCH (10:22)
[2018-06-18] MEDS: GLYCOPYRROLATE 1 MG TAB GT SCH ×3 (10:22→17:15)
[2018-06-18] MEDS: METOPROLOL 25 MG TAB GT SCH ×2 (10:23→20:57)
[2018-06-18] MEDS: DEXTROSE 5% 1,000 ML IV SCH (10:35)
--- NOTE | 2018-06-18 10:40 | NUR ---
CHECKED GTUBE PLACEMENT. SWOOSH CHECK HEARD OVER GTUBE PLACEMENT. NO RESIDUAL RETURN. ADMINISTERED MEDS VIA GTUBE. FLUSHED BEFORE AND AFTER MED ADMINISTRATION. PT TOLERATED WELL. PT EDUCATED ON SIDE EFFECTS. PT IS NON VERBAL.
--- NOTE | 2018-06-18 11:41 | NUR ---
PATIENT IN BED. NO SIGNS OF DISTRESS ON TRACH TO VENT. WILL CONTINUE TO MONITOR
--- NOTE | 2018-06-18 12:14 | NUR ---
DR. JENNY POTTER AT BEDSIDE PATIENT PRESENTING WITH TACHYPNEIC STATUS WITH BPM AT 32 BREATH SOUNDS RHONCHI AT LEFT SIDE TO ABSENT AT RIGHT SIDE R/O POSSIBLE SECRETION PLUG OR TENSION PNEUMOTHORAX REVIEWED VITAL SIGN SATURATION 99% HR WITHIN NORMAL LIMITS REMOVED PATIENT FORM VENTILATORY SUPPORT INSTILL 5 CC OF NORMAL SALINE INTO TRACH TUBE/TRACHEA ATTACHED AMBU BAG WITH OXYGEN AT 15 LPM NO EVIDENCE OF RESISTANCE WITH BAG DEPRESSION X [address] JENNY POTTER MD TO ORDERED STAT CXR POST HHN THERAPY PATIENT PRESENTING WITH DECREASED BPM AT 20 BREATH SOUNDS CLEAR BILATERAL VTe AT +500 L Addendum: 06/18/18 at 1243 by Huber Charles RT DEEP TRACHEAL SUCTION FOR SMALL THIN YELLOW SECRETIONS
--- NOTE | 2018-06-18 12:30 | NUR ---
CHECKED GTUBE PLACEMENT WITH SWOOSH TECHNIQUE. SWOOSH HEARD OVER GTUBE PLACEMENT. NO RESIDUAL RETURN. ADMINISTERED MEDS VIA GTUBE. FLUSHED BEFORE AND AFTER MED ADMINISTRATION. PT TOLERATED WELL. PT EDUCATED ON SIDE EFFECTS. PT IS NON VERBAL.
[2018-06-18] MEDS: Z-GUARD PASTE TP SCH (12:38)
[2018-06-18] MEDS ORDERED: POTASSIUM CHLORIDE 20% 40 MEQ/15 ML UDC GT SCH (14:00)
--- NOTE | 2018-06-18 14:22 | NUR ---
CHECKED GTUBE PLACEMENT USING SWOOSH.SWOOSH HEARD. 5ML RESIDUAL. ADMINISTERED MEDS. FLUSHED BEFORE AND AFTER. PATIENT EDUCATED ON SIDE EFFECTS. PATIENT IS NONVERBAL
--- NOTE | 2018-06-18 14:51 | NUR ---
STARTED BLOOD TRANSFUSION. VITALS ARE STABLE TEMP99.9 HR 89 RR 22 B/P 119/76. WILL CONTINUE TO MONITOR IN THE ROOM.
--- NOTE | 2018-06-18 15:37 | NUR ---
PATIENT CLEANSED AND CHANGED. SUCTIONED SECRETIONS. PATIENT IN NO DISTRESS. WILL CONTINUE TO MONITOR
--- NOTE | 2018-06-18 15:53 | NUR ---
STABLE NO DISTRESS NOTED GOOD CHEST RISE DEEP TRACHEAL SUCTION FOR MODERATE THIN YELLOW SECRETIONS AIRWAY PATENT
--- NOTE | 2018-06-18 17:40 | NUR ---
CHECK FOR SWOOSH. SWOOSH HEARD. CHECKED FOR RESIDUAL. CRUSHED MEDS. ADMINISTERED MEDS. FLUSHED BEFORE AND AFTER. PT TOLERATED WELL. PT EDUCATED ON SIDE EFFECTS. PT UNABLE TO VERBALIZE UNDERSTANDING. PT APHASIC. SUCTIONED PT. PT TOLERATED WELL. REPOSITIONED PT. BLOOD TRANSFUSION STILL TRANSFUSING. NO REACTIONS AT THIS TIME. WILL CONTINUE TO MONITOR.
--- NOTE | 2018-06-18 17:54 | NUR ---
AWAKE NO EVIDENCE OF PULMONARY DISTRESS NOTED GOOD CHEST RISE DEEP TRACHEAL SUCTION FOR MODERATE THIN YELOOW SECRETIONS AIRWAY
[2018-06-18] MEDS: VANCOMYCIN 1GM/DEXT 5% PREMIX 200 ML IV SCH (18:18)
--- NOTE | 2018-06-18 18:25 | NUR ---
PATIENT VOMITED X2. RT AT BEDSIDE. PATIENT IN NO DISTRESS. SUCTIONED AND CLEANSED. VITALS ARE WNL AT THIS TIME.
--- NOTE | 2018-06-18 19:10 | NUR ---
GAVE BEDSIDE REPORT TO REPORTS DEVELOPER NURSE. PATIENT ENDORSED IN STABLE CONDITION
--- NOTE | 2018-06-18 19:11 | NUR ---
RECEIVED BEDSIDE REPORT FROM AM SHIFT NURSE. PATIENT AWAKE, RESPONSIVE TO PAIN AND PRESSURE, APHASIC. TRACH TO VENT. VENT SETTINGS AT FI02 28 VT 500 RATE 16 FLOW 40 PEEP5 PMAX 50. PATIENT IS BEDBOUND. SEIZURES PRECAUTIONS. ASPIRATION PRECAUTIONS. SKIN HAS SACRAL COCCYX ULCER, DRESSING IS INTACT. PATIENT HAS RANKIN, RANKIN IS PATENT W YELLOW URINE. IV ON APOORVA 20G STILL INFUSING VANCO AT 165. GTUBE IN PLACE VITAL AF 1.2 TEMPORARILY STOPPED BY PREVIOUS NURSE DUE TO VOMITING EPISODE X 1. LOOSE BM, MAX IN AMOUNT NOTED. WILL CLEAN, CONTACT PRECAUTIONS FOR MDRO SPUTUM AND ESBL URINE. FALL RISK PROTOCOL IN PLACE. BED IN LOW POSITION. WOUND BED. CALL LIGHT WITHIN REACH. WILL CONTINUE TO MONITOR
[2018-06-18] MEDS ORDERED: ACETAMINOPHEN 650 MG/20.3 ML UDC PO PRN (20:00)
[2018-06-18] MEDS ORDERED: ONDANSETRON 4 MG/5 ML ORASYR GT PRN (20:05)
--- NOTE | 2018-06-18 20:09 | NUR ---
INFORMED IMMIGRATION PARALEGAL THAT PATIENT VOMITED EARLIER AT 1825, AND THAT PT HAS FEVER AT 101.0 RIGHT NOW, HR 103- INCREASED, ALL OTHER VITALS ARE WNL. SAID TO GO AHEAD GIVE ZOFRAN Q6 PRN AND THAT TO ORDER TYLENOL 650 MG SOLUTION Q 4 PRN. ALSO SAID TO GO AHEAD W/ 2ND UNIT OF BLOOD TO BE INFUSED. SAID TO HOLD COLACE FOR 2100 SINCE PT VOMITED.WILL CARRY OUT DR. KHAN
--- NOTE | 2018-06-18 20:14 | NUR ---
Received pt on vent support at documented settings, suctioned small amounts of thin clear white secretions, no resp distress or SOB noted at this time, Portex 8 trach secured/patent/midline, alarms set and audible, ambu bag at bedside, vent plugged into red outlet, cont pulse ox on, will cont to monitor.
--- NOTE | 2018-06-18 20:17 | NUR ---
CALLED PHARMACY AFTER HRS TO VERIFY TYLENOL 650MG PO Q4 PRN ORDERED BY DR. GOMEZ
--- NOTE | 2018-06-18 20:18 | NUR ---
INFORMED SHERICE OF LAB THAT TO HOLD ON EI THE BLOOD I WILL ADMINISTER SOON I ADMINISTER PT'S MED FOR HIGH TEMP AND VOMITING EARLIER AT 1825
--- NOTE | 2018-06-18 20:44 | NUR ---
CALLED [facility] PHARMACIST HE SAID TO GO AHEAD GIVE THE HEPARIN SQ W/ PT OF 10.0 LOW. PLT NORMAL AT 194
[2018-06-18] MEDS: INSULIN LANTUS 100 UNITS/ML 10 ML VIAL SUBQ SCH (20:50)
--- NOTE | 2018-06-18 20:53 | NUR ---
[facility] PATIENT HAS LOOSE BOWEL MVT- LAST SHIFT, CLEANED ANOTHER LOOSE BM MAX AMOUNT-1X AND VOMITING AT 1825. DR. GOMEZ AWARE
--- NOTE | 2018-06-18 21:24 | NUR ---
TALKED TO DR. GOMEZ AGAIN, HE SAID TO HOLD OFF FEEDING UNTIL BLOOD TRANSFUSION FINISHES, AND IF NO VOMITING FOR TONIGHT. BS IS CURRENTLT 156 MG/DL.WILL CARRY OUT
--- NOTE | 2018-06-18 22:16 | NUR ---
PRE-TRANSFUSION VS; 99.9; 85; 137/78, 99% 02 SAT; RR-24 (OT ON VENT), VERIFIED BLOOD Claudia SPANGLER RN Addendum: 06/18/18 at 2249 by Lilo Shankar RN PLS AMEND: TIME ON VERIFIED Claudia SPANGLER [id number]
--- NOTE | 2018-06-18 22:39 | NUR ---
TOOK BLOOD FROM LAB Addendum: 06/18/18 at 2240 by Lilo Shankar RN AMEND TIME TO 1
--- NOTE | 2018-06-18 22:41 | NUR ---
BLOOD STARTED AT 2301 VS: 100.5 HIGH TEMP. GIVEN TYLENOL EARLIER ORDERED BY . HR 85; RR-20; BLOOD PRESSURE-150/85 99% O2 SAT WILL CONTINUE TO MONITOR FOR ADVERSE REACTIONS. NURSE AT BEDSIDE FOR 15 MINS. Addendum: 06/18/18 at 2250 by Lilo Shankar RN BLOOD STARTED AT 1
--- NOTE | 2018-06-18 22:42 | NUR ---
VERIFIED BLOOD W/ CRYS TABOR
[2018-06-18] MEDS ORDERED: cloNIDine 0.1 MG TAB PO PRN (23:20)
--- NOTE | 2018-06-18 23:22 | NUR ---
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 INFORMED HIM THAT OF 2255 BP IS 166/88. INFORMED HIM ALSO THAT TEMP AROUND 2240 (DESPITE PARACETAMOL GIVEN) STILL 100.5 , HIGH. SAID TO GIVE LASIX 20 MG IV X 1 DOSE; AND CLONIDINE 1 MG PO Q6 FOR SPB GREATER THAN 160. WILL CARRY OUT ORDERS. Addendum: 06/18/18 at 7979 by Lilo Shankar RN PLS AMEND CLONIDINE TO 0.1MG Q 6 PRN FOR SBP GREATER THAN 160.
[2018-06-19] VITALS: BP 146/90
[2018-06-19] MEDS ORDERED: FUROSEMIDE 20 MG/2 ML VIAL IVP SCH
--- NOTE | 2018-06-19 01:50 | NUR ---
FINISHED BLOOD TRANSFUSION, VS: 99.5 F; 88; 17; 149/89; FLACC 0; 96% O2 SAT
--- NOTE | 2018-06-19 02:25 | NUR ---
HYDRAGUARD GIVEN LATE DUE TO ONGOING BLOOD TRANSFUSION; PATIENT CLEANED AND TURNED TO ONE SIDE
--- NOTE | 2018-06-19 02:25 | NUR ---
POST BT VS: 100.1 F; 91; 19; 150/77 FLACC 0; 96% O2 SAT
[2018-06-19] MEDS: HYDRAGUARD CREAM TP SCH ×2 (02:27→12:40)
[2018-06-19] MEDS: DEXTROSE 5% 1,000 ML IV SCH ×2 (02:33→12:16)
[2018-06-19 04:00] VITALS: BP 152/85
--- NOTE | 2018-06-19 05:00 | NUR ---
RESUMED GT TUBE FEEDING
[2018-06-19] MEDS: VANCOMYCIN 1GM/DEXT 5% PREMIX 200 ML IV SCH ×2 (05:15→17:56)
--- NOTE | 2018-06-19 05:36 | NUR ---
BLOOD SUGAR TAKEN AT 3 MG/DL. LOW. NO D5 IV PUSH NEEDED SINCE PER PROTOCOL GIVE IF BELOW 60MG/DL. Addendum: 06/19/18 at 0541 by Lilo Shankar RN BS 63 MG/DL NOT 3
[2018-06-19] MEDS: BLOOD GLUCOSE MONITORING 1 DEV DEV FS SCH ×3 (05:37→16:34)
[2018-06-19 06:27] LABS: ANION GAP 9.4 (8-16); CARBON DIOXIDE 26.9 mmol/L (21-32); CREATININE 0.7 mg/dL (0.7-1.3); POTASSIUM 3.3 mmol/L (3.5-5.1)
--- NOTE | 2018-06-19 07:00 | NUR ---
RECEIVED BEDSIDE REPORT FROM MACHINE REPAIR PERSON RN. PT LAYING IN BED SEMI OATES POSITION. PT NON VERBAL. APHASIC. PT BEDBOUND. L UPPER ARM 20G IV INFUSING VANCO 135. NO REDNESS. NO DRAINAGE. IV INTACT. EDEMA TO HANDS+3 PITTING. SACRAL COCCYX PRESSURE WOUND. DRESSING IS CLEAN AND DRY. TRACH TO VENT. Fi02 28% VT 500ML RATE 16 FLOW 45 PEEP [address] RANKIN CATH IN PL[address]. GTUBE IN PLACE, RUNNING VITAL AF 50 W H20 FLUSH 250 Q6HR . SEIZURE PREC. ASPIRATION PREC FALL RISK PREC. BED IN LOWEST POSITION. CONTACT PREC FOR MDRO SPUTUM, ESBL URINE. PT IN STABLE CONDITION. WILL CONTINUE TO MONITOR. Addendum: 06/19/18 at 0831 by Mallory Orlando RN WRONG TIME.
--- NOTE | 2018-06-19 07:25 | NUR ---
ENDORSED TO NEXT SHIFT FOR CONTINUITY OF CARE. PT STABLE AT THIS TIME.
--- NOTE | 2018-06-19 07:26 | NUR ---
RECEIVED BEDSIDE REPORT FROM SOFTWARE COMPUTER SPECIALIST RN. PT LAYING IN BED SEMI OATES POSITION. PT NON VERBAL. APHASIC. PT BEDBOUND. L UPPER ARM 20G IV INFUSING VANCO 135. NO REDNESS. NO DRAINAGE. IV INTACT. EDEMA TO HANDS+3 PITTING. SACRAL COCCYX PRESSURE WOUND. DRESSING IS CLEAN AND DRY. TRACH TO VENT. Fi02 28% VT 500ML RATE 16 FLOW 45 PEEP [address]MAX50[address] RANKIN CATH IN PLACE. GTUBE IN PLACE, RUNNING VITAL AF 50 W H20 FLUSH 250 Q6HR . SEIZURE PREC. ASPIRATION PREC FALL RISK PREC. BED IN LOWEST POSITION. CONTACT PREC FOR MDRO SPUTUM, ESBL URINE. PT IN STABLE CONDITION. WILL CONTINUE TO MONITOR.
[2018-06-19 08:00] VITALS: BP 138/80
[2018-06-19] MEDS: DOCUSATE 100 MG/10 ML UDC PO SCH (09:00)
[2018-06-19] MEDS: LACTULOSE 20 GM/30 ML UDC GT SCH ×3 (09:00→16:42)
[2018-06-19] MEDS: ASPIRIN 325 MG TAB GT SCH (09:07)
[2018-06-19] MEDS: FERROUS SULFATE 300 MG/5 ML UDC GT SCH (09:07)
[2018-06-19] MEDS: levETIRAcetam 100 MG/ML ORASYR GT SCH (09:07)
[2018-06-19] MEDS: LISINOPRIL 20 MG TAB GT SCH (09:07)
[2018-06-19] MEDS: METOPROLOL 25 MG TAB GT SCH (09:08)
[2018-06-19] MEDS: FAMOTIDINE 20 MG TAB GT SCH (09:08)
[2018-06-19] MEDS: GLYCOPYRROLATE 1 MG TAB GT SCH ×3 (09:08→16:42)
[2018-06-19] MEDS: ASCORBIC ACID 500 MG TAB GT SCH (09:09)
--- NOTE | 2018-06-19 09:13 | NUR ---
CHECKED GTUBE USING SWOOSH. SWOOSH HEARD. 5ML RESIDUAL. CRUSHED AND ADMINISTERED MEDS. FLUSHED BEFORE AND AFTER. PATIENT TOLERATED WELL. EDUCATED ON SIDE EFFECTS. PATIENT IS APHASIC AND UNABLE TO VERBALIZE UNDERSTANDING. WILL CONTINUE TO MONITOR THE PATIENT. HELD LACTULOSE AND COLACE D/T DIARRHEA.
[2018-06-19 09:19] LABS: BASOPHILS % (AUTO) 0.6 % (0.0-2.0); EOSINOPHILS # (AUTO) 0.2 K/uL (0-0.4); EOSINOPHILS % (AUTO) 2.4 % (0.0-4.0); HEMATOCRIT 29.9 % (36-52); HEMOGLOBIN 9.7 g/dL (12.0-18.0); LYMPHOCYTES # (AUTO) 1.4 K/uL (2.0-11.5); LYMPHOCYTES % (AUTO) 17.5 % (20.5-51.1); MEAN CORPUSCULAR HEMOGLOBIN 27 pg (27-31); MEAN CORPUSCULAR HGB CONC 33 g/dL (33-37); MEAN CORPUSCULAR VOLUME 83.5 fL (80-94); MONOCYTES # (AUTO) 0.6 K/uL (0.8-1.0); MONOCYTES % (AUTO) 7.6 % (1.7-9.3); NEUTROPHILS # (AUTO) 5.7 K/uL (1.8-7.7); NEUTROPHILS % (AUTO) 71.9 % (42.2-75.2); PLATELET COUNT (AUTO) 226 K/uL (140-450); RED BLOOD CELL COUNT(AUTO) 3.58 MIL/uL (4.20-6.10); RED CELL DISTRIBUTION WIDTH 16.2 % (11.6-13.7)
--- NOTE | 2018-06-19 11:07 | NUR ---
PT SLEEPING IN BED. NO SIGN OF RESP DISTRESS. BED IN LOWEST POSITION. CALL LIGHT WITHIN REACH. WILL CONTINUE TO MONITOR.
[2018-06-19 11:47] VITALS: BP 135/75
--- NOTE | 2018-06-19 12:15 | NUR ---
PT LAYING IN BED. ADMINISTERED MEDS. CHECK FOR SWOOSH. SWOOSH HEARD. FLUSH BEFORE AND AFTER ADMIN MEDS. ORAL MOUTH CARE PERFORMED. NO SIGNS OF RESP DISTRESS. PT TOLERATED WELL. PT REPOSITIONED TO LEFT LATERAL SIDE. HOB SEMI FOWLERS POSITION. BED IN LOWEST POSITION. CALL LIGHT WITHIN REACH.
--- NOTE | 2018-06-19 12:32 | NUR ---
SPOKE TO CANDI, VIOLET . PATIENTS SAID SHE DOES NOT REALLY WANTS PATIENT TO GO BACK TO [facility] BECAUSE THEY DONT TAKE GOOD CARE OF HIM. CALLED OLEG CURRIE, TO HAVE HER CALL CANDI DEE AT [phone] Addendum: 06/19/18 at 1249 by Charisma Vaca RN WRONG INFORMATION. CORRECT INFORMATION: CM. JOSEPH CURRIE, DRY FOLDER CLOTH, WILL CALL CANDI LOPEZ
[2018-06-19] MEDS: Z-GUARD PASTE TP SCH (12:40)
--- NOTE | 2018-06-19 13:25 | NUR ---
Clinicals faxed to [facility] .
--- NOTE | 2018-06-19 13:35 | NUR ---
Called Li Rg and left a message to call CM or social research assistant.
--- NOTE | 2018-06-19 14:15 | NUR ---
PT SLEEPING IN BED. HOB IN SEMI FOWLERS POSITION. BED IN LOWEST POSITION. CALL LIGHT WITHIN REACH. NO PAIN AT THIS TIME. Addendum: 06/19/18 at 1440 by Mallory Orlando RN NO SIGN OF RESP DISTRESS. RESPIRATIONS WITHIN NORMAL LIMITS. WILL CONTINUE TO MONITOR.
--- NOTE | 2018-06-19 14:59 | NUR ---
06/19/18 RD FOLLOW UP COMPLETED PLEASE REFER TO NUTRITION ASSESSMENT UNDER CARE ACTIVITY FOR ESTIMATED NUTRITIONAL NEEDS. 1. CONTINUE VITAL AT 50 ML/HR -THIS WILL PROVIDE A VOLUME OF 1200 ML, 1440 KCAL ENERGY, AND 90 GM PROTEIN. IT MEETS 94% OF PT�S ENERGY NEED AND 81% OF PT�S PROTEIN NEEDS. 2. CONTINUE PROSOURCE BID 3. CONTINUE FWF [address] TO FOLLOW-UP 2-3 DAYS, HIGH RISK HEBER VIZCARRA RD
--- NOTE | 2018-06-19 15:42 | NUR ---
Shaper Set Up Operator Note: Per Charge Nurse Ana, patient is on isolation for MDRO sputum and ESBL MDRO urine. Pending response from Radha at [facility] / , Radha is aware of isolation. Pending response from Saadia at [facility] Per Clarita at [facility] , no beds available in their sub-acute at this time. Per Ariane at [facility] , no beds available in their sub-acute at this time. Per Amparo from [facility] , no beds available in their sub-acute at this time. I called and spoke with patient's Li Rg . I explained to her I contacted the above facilities and provided her with an update. She reported if [facility] or [facility] cannot accept patient she is in agreement with transferring patient back to [facility] . She reported she has talked to [facility] regarding her concerns and nothing has been resolved. I advised her to request for [facility] staff to assist her with patient's transfer to another sub-acute in case patient returns to [facility]. She verbalized understanding. If patient returns to [facility]. Per Antony from [facility], patient may return to room 27B today, accepting physician is . Antony is aware of patient's isolation.
[2018-06-19 16:00] VITALS: BP 110/69
[2018-06-19] MEDS ORDERED: POTASSIUM CHLORIDE 20% 40 MEQ/15 ML UDC GT SCH (16:00)
--- NOTE | 2018-06-19 16:03 | NUR ---
patient laying in bed. no signs of distress. will continue to monitor the patient
--- NOTE | 2018-06-19 16:12 | NUR ---
PT SOUNDED RHONCHI ON THE RIGHT SIDE BUT CLEAR ON THE LEFT. SUCTIONED PT, SMALL AMOUNT OF YELLOWISH SECRETIONS, NO DISTRESS.
--- NOTE | 2018-06-19 16:17 | NUR ---
Transportation AUTH [id number] from [facility].
--- NOTE | 2018-06-19 16:23 | NUR ---
Manager Poker Note: Yony Garcia at [facility] / , they can accept patient, she reported she will contact JUSTEN Xavier from [facility] for snf auth and contact our Charge Nurse Ana and provide her with room number and accepting physician.
--- NOTE | 2018-06-19 16:50 | NUR ---
SPOKE TO [facility] STAFF, TRANSPORT W RT AMBULANCE NOT AVAILABLE TILL 1900.
--- NOTE | 2018-06-19 16:58 | NUR ---
PT LAYING IN BED. SWOOSH CHECK. SWOOSH HEARD. ADMINISTERED MEDS TO PT. FLUSH BEFORE AND AFTER. PT TOLERATED WELL. NO SIGN OF RESP DISTRESS. PERFORMED ORAL CARE. PT TOLERATED WELL. NO PAIN AT THIS TIME. PT UNABLE TO VERBALIZE. APHASIC. BED IN LOWEST POSITION. CALL LIGHT WITHIN REACH. Addendum: 06/19/18 at 1706 by Mallory Orlando RN SWOOSH CHECK HEARD UPON GTUBE PLACEMENT.
--- NOTE | 2018-06-19 17:00 | NUR ---
GAVE TELEPHONE REPORT TO MIGDALIA. SHE IS AWARE OF PICKUP AT 1900. ANSWERED ALL QUESTIONS. CALL BACK NUMBER GIVE. , CANDI IS AWARE OF DISCHARGE TO [facility] AT 1900.
--- NOTE | 2018-06-19 18:46 | NUR ---
PT LAYING IN BED COMFORTABLY. NO SIGNS OF RESPIRATORY DISTRESS. NO PAIN AT THIS TIME. BED IN LOWEST POSITION. CALL LIGHT WITHIN REACH. PT IN STABLE CONDITION.
[2018-06-19] MEDS: ALBUTEROL 0.083% 2.5 MG/3 ML NEBU INH PRN (19:12)
--- NOTE | 2018-06-19 19:12 | NUR ---
GAVE BEDSIDE REPORT TO INFECTION CONTROL MANAGER NURSE. PATIENT ENDORSED IN STABLE CONDITION Addendum: 06/19/18 at 1912 by Charisma Vaca RN ENDORSED TO REMOVE ID BANDS, IV AND TELE MONITOR Addendum: 06/19/18 at 1917 by Charisma Vaca RN [facility] HERE. JUST GOING TO GIVE REPORT TO THEM,
--- NOTE | 2018-06-19 19:18 | NUR ---
GAVE BEDSIDE REPORT TO [facility] STAFF. ALL QUESTIONS ANSWERED. PER [facility] REMOVE IV, PER [facility] STAFF KEEP IV IN FOR EMERGENCY PURPOSES DURING TRANSPORT, THEY WILL REMOVE IT BEFORE ENTERING THE FACILITY. RANKIN KEPT IN PER [facility] REQUEST. TELE MONITOR REMOVED. ID BANDS REMOVED.
--- NOTE | 2018-06-19 19:24 | NUR ---
RECEIVED PATIENT TRACH PORTEX 8 TO VENT ON SETTINGS AC/VC 500, 16, +5, 28%. AIRWAY SECURE AND PATENT. SUCTIONED LARGE AMOUNT OF THICK, PALE YELLOW SECRETIONS. PRN BREATHING TREATMENT ADMINISTERED. TOLERATED TX WELL, NO ADVERSE SIDE EFFECTS .VENT CHECK DONE. VENT ALARMS ON AND AUDIBLE. VENT PLUGGED INTO RED OUTLET. [facility] BAG AT [facility]. CONTINUOUS PULSE ON ON PATIENT; ALARMS ON AND FUNCTIONING. NO RESPIRATORY DISTRESS NOTED AT THIS TIME. WILL CONTINUE TO MONITOR.
--- NOTE | 2018-06-19 19:28 | NUR ---
MEDICAL TRANSPORT TEAM AT BEDSIDE.
--- NOTE | 2018-06-19 19:29 | NUR ---
PATIENT LEFT IN STABLE CONDITION W [facility] NURSE.
== END 2018-06-19 19:29 | DRG 130 ==
LOC: MED 20:00 → MTU 23:24
PROVIDERS: ADMIT Internal Medicine Pulmonary Disease; ATTEND Internal Medicine Pulmonary Disease
PROC: 5A1955Z Respiratory Ventilation, Greater than 96 Consecutive Hours (ICD-10-PCS; principal; 2018-06-14)
PROC: 30233N1 Transfusion of Nonautologous Red Blood Cells into Peripheral Vein, Percutaneous Approach (ICD-10-PCS; 2018-06-18)
DX: J18.9 Pneumonia, unspecified organism (principal); G82.50 Quadriplegia, unspecified; G93.41 Metabolic encephalopathy; E44.0 Moderate protein-calorie malnutrition; N17.9 Acute kidney failure, unspecified; J96.11 Chronic respiratory failure with hypoxia; E11.22 Type 2 diabetes mellitus with diabetic chronic kidney disease; E87.0 Hyperosmolality and hypernatremia; D64.9 Anemia, unspecified; I12.9 Hypertensive chronic kidney disease with stage 1 through stage 4 chronic kidney disease, or unspecified chronic kidney disease; N18.9 Chronic kidney disease, unspecified; E86.0 Dehydration; Z68.23 Body mass index [BMI] 23.0-23.9, adult; Z79.82 Long term (current) use of aspirin; Z79.4 Long term (current) use of insulin; Z86.73 Personal history of transient ischemic attack (TIA), and cerebral infarction without residual deficits; Z93.0 Tracheostomy status; Z93.1 Gastrostomy status
CPT/HCPCS: 36415; 36600; 71045; 80048; 80053; 80202; 81001; 82803; 82948; 83605; 83735; 84100; 84484; 85025; 85610; 85730; 86886; 86900; 86901; 86920; 87040; 87070; 87081; 87086; 87186; 87205; 93005; 94003; 94640; 96365; 96366; 96367; 99285; J1644; J1815; J1940; J2405; J2543; J3370; J7030; J7042; J7060; J7613; P9016; Q0092